=== PATIENT | male | born 2000 | race American Indian/Alaskan Native ===

== ENCOUNTER 2019-04-01 10:42 | Emergency (ER) | payer OTHER ==
[2019-04-01 10:54] VITALS: BP 128/69
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
== END 2019-04-01 13:46 | disposition home or self-care (01) ==
LOC: ED 10:42
DX: S09.90XA Unspecified injury of head, initial encounter (principal); Y04.0XXA Assault by unarmed brawl or fight, initial encounter; Y93.89 Activity, other specified; Y92.009 Unspecified place in unspecified non-institutional (private) residence as the place of occurrence of the external cause; Y99.8 Other external cause status
CPT/HCPCS: 99282